=== PATIENT | female | born 1945 | race Caucasian/White ===

== ENCOUNTER → 2018-11-30 | Outpatient (CLI) | payer MEDICARE, OTHER ==
[~2018-11-30] MED LIST: ALLO-119 PO; ASCO-182 PO; BIOT10005; COLO500C; CYA1000 PO; DUL20 PO; DYA PO; ESTR-25 PO; ESTR0.5T16 PO; FEXO30TA36 PO; LAN30PT; LAN30PT PO; LANS15CA38 PO; LITH300T18 PO; LOR5 PO; MEDR2.5T34 PO; MULT1TAB64 PO; OMEP-218 PO; ROSU10TA PO; SIMV-42 PO; VEN75 PO
[2018-11-30 11:55] LABS: PLATELET COUNT, AUTOMATED 315 K/uL (150-450)
--- NOTE | 2018-11-30 13:57 | EKG ---
FACILITY: [facility] PATIENT NAME: JARED MEZA : [id number] MR: [id number]: [id number] EXAM DATE: ORDERING PHYSICIAN: MEMO GOLDSTEIN TECHNOLOGIST: HARRY LANDA Test Reason : Blood Pressure : / mmHG Vent. Rate : 065 BPM Atrial Rate : 065 BPM P-R Int : 148 ms QRS Dur : 086 ms QT Int : 398 ms P-R-T Axes : 064 026 052 degrees QTc Int : 413 ms Normal sinus rhythm Normal ECG No previous ECGs available Referred By: FAY Confirmed By:
== END ==
LOC: LAB 10:57
PROVIDERS: ATTEND Emergency Medicine
DX: R07.89 Other chest pain (principal); I25.10 Atherosclerotic heart disease of native coronary artery without angina pectoris; G62.9 Polyneuropathy, unspecified; E55.9 Vitamin D deficiency, unspecified
CPT/HCPCS: 36415; 82040; 82247; 82306; 82310; 82374; 82435; 82565; 82607; 82947; 83036; 83880; 84075; 84132; 84155; 84295; 84450; 84460; 84484; 84520; 85025; 85379